=== PATIENT | male | born 1980 | race Caucasian/White ===

== ENCOUNTER 2016-10-11 18:36 | Emergency (ER) | payer BC ==
[~2016-10-11] VITALS: Ht 180.3 cm; Wt 104.3 kg
[2016-10-11 18:37] VITALS: BP 128/70
[2016-10-11] MEDS ORDERED: BAYE1TAB5 PO (18:48)
[2016-10-11] MEDS ORDERED: KETOROLAC 60 MG/2 ML VIAL (J1885) IM ONE (19:30)
[2016-10-11] MEDS ORDERED: CYCL10TA PO (19:54)
[2016-10-11] MEDS ORDERED: NAPR500T PO (19:54)
[2016-10-11] MEDS ORDERED: HYDR-3713 PO (19:54)
--- NOTE | 2016-10-12 08:39 | REP ---
Lumbar spine five views: Comparisons 11/15/2009. Vertebral body heights, interspacing alignment are normal and unchanged. There is a large Schmorl's node in the inferior endplate of L1, unchanged. There is no spondylolysis or spondylolisthesis. The pedicles, facets and sacroiliac articulations are unremarkable. There are numerous surgical clips in the abdomen on the right, unchanged. Impression: Essentially negative lumbar spine. No interval change. A large Schmorl's node is incidentally noted in the inferior endplate of L1, unchanged. Signed by Rigoberto Wei MD 10/12/2016 08:31 A
== END 2016-10-11 20:00 | disposition home or self-care (01) ==
LOC: M ED 19:21
DX: M54.5 Low back pain (principal); G89.29 Other chronic pain; M51.46 Schmorl's nodes, lumbar region; F17.210 Nicotine dependence, cigarettes, uncomplicated
CPT/HCPCS: 72110; 96372; 99281; J1885; J3360

== ENCOUNTER → 2018-10-15 | Outpatient (CLI) | payer BC ==
[~2018-10-15] MED LIST: BAYE1TAB5 PO; CYCL10TA PO; HYDR-3713 PO; NAPR-837 PO
[2018-10-15 09:39] LABS: HEMATOCRIT 44.4 % (42.0-52.0); HEMOGLOBIN 14.4 g/dl (13.5-17.5); MEAN CORPUSCULAR HEMOGLOBIN 31.9 pg (27.0-33.0); MEAN CORPUSCULAR HGB CONC 32.4 g/dl (32.0-36.5); MEAN CORPUSCULAR VOLUME 98.4 fl (80.0-96.0); PLATELET COUNT, AUTOMATED 201 10^3/uL (150-450); RED BLOOD COUNT 4.51 10^6/uL (4.30-6.10); WHITE BLOOD COUNT 8.8 10^3/uL (4.0-10.0)
[2018-10-15 09:56] LABS: HEMOGLOBIN A1c 5.9 %
--- NOTE | 2018-10-15 09:56 | REP ---
Right shoulder: Three views. History: Hypertension, fatigue, right shoulder pain. Findings: The right glenohumeral and acromioclavicular joints are normally aligned. Periarticular soft tissues are unremarkable. No erosive changes seen. Impression: Negative right shoulder radiographs. Electronically Signed by Luis Gant MD 10/15/2018 09:47 A
--- NOTE | 2018-10-15 09:56 | REP ---
Chest x-ray: Two views. History: Hypertension, fatigue, pain in the right shoulder. . Comparison study: March 02, 2009 . Findings: The lungs are well inflated and free of infiltrate. The pleural angles are sharp. The heart size is normal. Pulmonary vasculature is not increased. No significant bony abnormality is seen. There are surgical clips in the upper abdomen. Impression: Negative chest x-ray. Electronically Signed by Luis Gant MD 10/15/2018 09:48 A
[2018-10-15 10:13] LABS: ALBUMIN 3.9 GM/DL (3.2-5.2); ALT/SGPT 45 U/L (12-78); BILIRUBIN,TOTAL 0.4 MG/DL (0.2-1.0); BLOOD UREA NITROGEN 13 MG/DL (7-18); CALCIUM LEVEL 8.4 MG/DL (8.5-10.1); CARBON DIOXIDE LEVEL 29 MEQ/L (21-32); CHLORIDE LEVEL 110 MEQ/L (98-107); CHOLESTEROL LEVEL 202 MG/DL (<200); CREATININE FOR GFR 0.97 MG/DL (0.70-1.30); GLOMERULAR FILTRATION RATE > 60.0 (>60); GLUCOSE, FASTING 94 MG/DL (70-100); HDL CHOLESTEROL 40 MG/DL (>40); LDL CHOLESTEROL 134.2 MG/DL (<100); NON-HDL-C 162 MG/DL; POTASSIUM SERUM 4.2 MEQ/L (3.5-5.1); SODIUM LEVEL 144 MEQ/L (136-145); TESTOSTERONE 185 NG/DL (241-827); TOTAL PROTEIN 7.2 GM/DL (6.4-8.2); TRIGLYCERIDES LEVEL 139 MG/DL (<150)
--- NOTE | 2018-10-16 12:12 | ECGEPIP ---
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
== END ==
LOC: M LAB 08:49
PROVIDERS: ATTEND Family Medicine
DX: I10 Essential (primary) hypertension (principal); R53.83 Other fatigue; E07.9 Disorder of thyroid, unspecified

== ENCOUNTER → 2018-10-22 | Outpatient (CLI) | payer BC ==
[~2018-10-22] MED LIST changes: +GASTROGRAFIN SOLUTION 30ML (Q9963) As Ordered ONE; +ISOVUE-370 76% 100ML VIAL (Q9967) As Ordered ONE
--- NOTE | 2018-10-22 15:21 | REP ---
HISTORY: Abdominal pain and left lower quadrant mass. COMPARISON: None. CONTRAST: 100 mL [id number] The lung bases are clear. The precontrast enhanced portion of the examination shows hepatic and splenic densities to be within normal limits. There are no choleliths or nephroliths. Contrast enhanced portion of the examination shows the liver, gallbladder, spleen, pancreas, adrenal glands and kidneys to be within normal limits. The abdominal aorta and periaortic regions are within normal limits. No free fluid or free air is seen in the abdomen. The bowel loops and the mesenteries are within normal limits. Multiple surgical clips are seen in the abdomen and retroperitoneum. These are particularly right-sided and extend into the pelvis. The exact etiology of these clips is uncertain. CT PELVIS: There is descending colon and sigmoid colon diverticulosis. There is no free fluid or free air. There is no pelvic mass or adenopathy. The bowel loops are otherwise unremarkable. There is no CT evidence of an inguinal hernia. In the anterior abdominal wall at the level of the umbilicus there is a small rent, the aperture of which measures approximately 1.2 cm and through which only mesentery protrudes. Bone window technique throughout the exam shows the osseous structures to be within normal limits. IMPRESSION: 1. There is a small umbilical hernia as described above. 2. There is no evidence of acute intra-abdominal or intrapelvic disease with findings as described above. Electronically Signed by Leon Colon DO 10/22/2018 04:39 P
== END ==
LOC: M RAD 07:58
PROVIDERS: ATTEND Family Medicine
DX: K44.9 Diaphragmatic hernia without obstruction or gangrene (principal)
CPT/HCPCS: 74178; Q9963; Q9967

== ENCOUNTER 2018-12-10 06:08 | Day surgery (SDC) | payer BC ==
[~2018-12-10] VITALS: Ht 180.3 cm; Wt 106.1 kg
[~2018-12-10 06:08] MED LIST changes: -GASTROGRAFIN SOLUTION 30ML (Q9963) As Ordered ONE; -ISOVUE-370 76% 100ML VIAL (Q9967) As Ordered ONE; +LIDOCAINE 1% MDV 20ML VIAL SQ PRN; +PROAAER10; +TEST200I14 IM
[2018-12-10] MEDS ORDERED: LR 1,000 ML IV ONE (06:15)
[2018-12-10] MEDS ORDERED: fentaNYL 250 MCG/5 ML INJECTION (J3010) As Ordered ONE (06:50)
[2018-12-10] MEDS ORDERED: MIDAZOLAM INJ 2 MG/2 ML VIAL (J2250) As Ordered ONE (06:50)
[2018-12-10] MEDS ORDERED: PROPOFOL 200 MG/20 ML VIAL As Ordered ONE (06:58)
[2018-12-10] MEDS ORDERED: SUGAMMADEX SODIUM 500 MG/5 ML VIAL (BRIDION) As Ordered ONE (06:58)
[2018-12-10] MEDS ORDERED: LIDOCAINE 2% INJ 100 MG/5 ML SDV (FOR ANES.) As Ordered ONE (06:58)
[2018-12-10] MEDS ORDERED: ONDANSETRON 4MG/2ML VIAL (J2405) As Ordered ONE ×2 (06:58→09:00)
[2018-12-10] MEDS ORDERED: dexameTHASONE 4 MG/ML 1ML VIAL (J1100) As Ordered ONE (06:59)
[2018-12-10] MEDS ORDERED: KETOROLAC 60 MG/2 ML VIAL (J1885) As Ordered ONE (06:59)
[2018-12-10] MEDS ORDERED: ROCURONIUM BROMIDE 50 MG/5 ML VIAL As Ordered ONE (06:59)
[2018-12-10] MEDS ORDERED: BUPIVACAINE/EPIN 0.25% 30 ML VIAL As Ordered ONE (07:14)
[2018-12-10] MEDS ORDERED: KETAMINE HCL 200 MG/20 ML VIAL As Ordered ONE (07:32)
[2018-12-10] MEDS ORDERED: SUCCINYLCHOLINE 100 MG/5 ML SYRINGE (J0330) As Ordered ONE (07:53)
[2018-12-10] MEDS ORDERED: ACETAMINOPHEN 1000MG 100ML IV BTL (OFIRMEV) (J0131 PER 10MG) As Ordered ONE (07:54)
[2018-12-10] MEDS ORDERED: fentaNYL 100 MCG/2 ML INJECTION (J3010) As Ordered ONE (09:00)
[2018-12-10] MEDS ORDERED: NORCO, ANEXSIA 5/325MG TABLET (HYDROcodone/ACETAMINOPHEN) As Ordered ONE ×2 (09:00→11:42)
[2018-12-10] MEDS: fentaNYL 100 MCG/2 ML INJECTION (J3010) IV PRN ×4 (09:05→09:35)
[2018-12-10] MEDS ORDERED: LR 1,000 ML IV SCH (09:15)
[2018-12-10] MEDS ORDERED: ONDANSETRON 4MG/2ML VIAL (J2405) IV PRN (09:15)
[2018-12-10] MEDS: NORCO, ANEXSIA 5/325MG TABLET (HYDROcodone/ACETAMINOPHEN) PO PRN ×3 (09:15→11:45)
[2018-12-10] MEDS ORDERED: NORCO, ANEXSIA 5/325MG TABLET (HYDROcodone/ACETAMINOPHEN) PO PRN (09:15)
[2018-12-10 12:00] VITALS: BP 120/71
--- NOTE | 2018-12-13 08:44 | RO ---
DATE OF PROCEDURE: 12/10/2018 PREPROCEDURE DIAGNOSIS: Incarcerated incisional hernia. POSTPROCEDURE DIAGNOSIS: Incarcerated incisional hernia. PROCEDURE: Laparoscopic repair of incarcerated incisional hernia. SURGEON: Dr. Rigoberto Vogel FINISHER PLATE: None. ANESTHESIA: General. ESTIMATED BLOOD LOSS: 5 mL. COMPLICATIONS: None. 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 He is now having some pain from that and he is here to have it repaired. Recommendation was to proceed with laparoscopic possible open repair. Risks and benefits of the procedure not limited to but including bleeding, infection, hernia formation, hernia recurrence, damage to surrounding structures, need for further surgery were discussed in detail with the patient. Informed consent was obtained and procedure was planned. PROCEDURE: The patient brought back to operating room six. After sufficient sedation, the abdomen was sterilely prepped and draped. Next time-out was done to confirm proper patient and proper procedure. Following that, a 5 mm incision made in the left upper quadrant, Veress needle was inserted and the abdomen was insufflated to 15 mmHg. Once the abdomen was insufflated, the Veress needle was removed. The 5 mm OptiView port was used to gain access to the abdomen. Once the abdomen was entered, a 5 mm port was placed in the left lower quadrant using the Enseal. The omental adhesions along the midline of the abdomen were carefully taken down as well as reducing the omentum that was incarcerated up inside of the hernia sac. Once that was completed, the hernia sac was dissected free circumferentially along with the preperitoneal fat using the Enseal. Once that was completed and everything was reduced, a 9 cm round Parietex composite mesh #0 Vicryl sutures placed in all four corners. It was placed inside the abdomen. Transvaginal sutures were brought out through the abdominal wall through a stab incision using a Bishop-Dubon needle. Those sutures were then tied in place. A secure strap tacker was then used to place two rows of tacks around perimeter of the mesh. Once that was completed, the abdomen was desufflated, ports removed. Skin incision closed with #4-0 Vicryl subcuticular sutures. The abdomen was cleaned and dried. Steri-Strips, 4x4 and tape were applied thus ending procedure.
== END 2018-12-10 12:10 | disposition home or self-care (01) ==
LOC: M SDC 06:08
PROVIDERS: ATTEND Surgery
DX: K42.0 Umbilical hernia with obstruction, without gangrene (principal); J45.909 Unspecified asthma, uncomplicated; G47.30 Sleep apnea, unspecified; Z91.010 Allergy to peanuts; Z79.51 Long term (current) use of inhaled steroids
CPT/HCPCS: 49653; C1781; J0131; J0330; J0690; J1100; J1885; J2250; J2405; J3010

== ENCOUNTER → 2020-01-14 | Outpatient (CLI) | payer BC ==
[~2020-01-14] MED LIST changes: +CYCL-707 PO; -CYCL10TA PO; -LIDOCAINE 1% MDV 20ML VIAL SQ PRN
== END ==
LOC: CANPRECLI → M LAB 08:50
PROVIDERS: ATTEND Family Medicine
DX: R53.83 Other fatigue (principal)

== ENCOUNTER → 2020-01-16 | Outpatient (REF) | payer BC ==
[2020-02-11 06:33] LABS: HEMATOCRIT 47.6 % (42.0-52.0); HEMOGLOBIN 15.8 g/dl (13.5-17.5); MEAN CORPUSCULAR HEMOGLOBIN 33.4 pg (27.0-33.0); MEAN CORPUSCULAR HGB CONC 33.2 g/dl (32.0-36.5); MEAN CORPUSCULAR VOLUME 100.6 fl (80.0-96.0); PLATELET COUNT, AUTOMATED 202 10^3/uL (150-450); RED BLOOD COUNT 4.73 10^6/uL (4.30-6.10)
[2020-02-17 08:34] LABS: BLOOD UREA NITROGEN 20 MG/DL (7-18); CREATININE FOR GFR 1.32 MG/DL (0.70-1.30); GLOMERULAR FILTRATION RATE > 60.0 (>60); GLUCOSE, FASTING 109 MG/DL (70-100)
[2020-02-17 08:35] LABS: ALT/SGPT 55 IU/L (0-32); BILIRUBIN,TOTAL 0.3 MG/DL (0.2-1.0); CALCIUM LEVEL 9.7 MG/DL (8.5-10.1); CARBON DIOXIDE LEVEL 28 mmol/L (20-29); CHLORIDE LEVEL 108 MEQ/L (98-107); POTASSIUM SERUM 4.2 MEQ/L (3.5-5.1); SODIUM LEVEL 142 MEQ/L (136-145)
[2020-02-17 08:36] LABS: CHOLESTEROL LEVEL 241 MG/DL (<200); CHOLESTEROL RISK RATIO 8.607 (<5); HDL CHOLESTEROL 28 MG/DL (>40); NON-HDL-C 213 MG/DL; TOTAL PROTEIN 7.4 GM/DL (6.4-8.2); TRIGLYCERIDES LEVEL 553 MG/DL (<150)
[2020-02-17 08:56] LABS: HEMOGLOBIN A1c 5.4 %
== END ==
LOC: M LAB 09:27
PROVIDERS: ATTEND Family Medicine
DX: E03.9 Hypothyroidism, unspecified (principal); R53.83 Other fatigue
CPT/HCPCS: 36415; 80053; 80061; 83036; 84443; 85027; G0103

== ENCOUNTER → 2020-09-15 | Outpatient (CLI) | payer BC ==
[2020-09-15 09:23] LABS: HEMATOCRIT 46.1 % (42.0-52.0); HEMOGLOBIN 15.4 g/dl (13.5-17.5); MEAN CORPUSCULAR HEMOGLOBIN 33.5 pg (27.0-33.0); MEAN CORPUSCULAR HGB CONC 33.4 g/dl (32.0-36.5); MEAN CORPUSCULAR VOLUME 100.2 fl (80.0-96.0); PLATELET COUNT, AUTOMATED 198 10^3/uL (150-450); WHITE BLOOD COUNT 8.2 10^3/uL (4.0-10.0)
[2020-09-15 09:46] LABS: HEMOGLOBIN A1c 5.3 %
[2020-09-15 09:51] LABS: ALT/SGPT 52 U/L (12-78); BILIRUBIN,TOTAL 0.5 MG/DL (0.2-1.0); BLOOD UREA NITROGEN 11 MG/DL (7-18); CALCIUM LEVEL 9.1 MG/DL (8.5-10.1); CARBON DIOXIDE LEVEL 28 MEQ/L (21-32); CHLORIDE LEVEL 108 MEQ/L (98-107); CHOLESTEROL LEVEL 237 MG/DL (<200); CHOLESTEROL RISK RATIO 6.236 (<5); GLOMERULAR FILTRATION RATE > 60.0 (>60); GLUCOSE, FASTING 86 MG/DL (70-100); HDL CHOLESTEROL 38 MG/DL (>40); LDL CHOLESTEROL 156 MG/DL (<100); NON-HDL-C 199 MG/DL; POTASSIUM SERUM 4.5 MEQ/L (3.5-5.1); SODIUM LEVEL 142 MEQ/L (136-145); TOTAL PROTEIN 7.2 GM/DL (6.4-8.2); TRIGLYCERIDES LEVEL 216 MG/DL (<150)
--- NOTE | 2020-09-15 11:16 | REP ---
INDICATION: HTN,FATIGUE, LAB 1ST EKG 2ND XR 3RD. COMPARISON: Comparison chest x-ray October 15, 2018. TECHNIQUE: Two views.. FINDINGS: The lungs are well inflated and free of infiltrate. The pleural angles are sharp. The heart size is normal. Pulmonary vasculature is not increased. No significant bony abnormality is seen. IMPRESSION: Negative chest x-ray. <Electronically signed by Ej Gant > 09/15/20 1115
--- NOTE | 2020-09-15 17:45 | ECGEPIP ---
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
[2020-09-17 11:48] LABS: TESTOSTERONE 334 NG/DL (241-827)
== END ==
LOC: M LAB 08:17
PROVIDERS: ATTEND Family Medicine
DX: R53.83 Other fatigue (principal); I10 Essential (primary) hypertension; E03.9 Hypothyroidism, unspecified

== ENCOUNTER → 2021-05-02 | Outpatient (CLI) | payer BC ==
[2021-05-02 08:35] LABS: HEMATOCRIT 42.6 % (42.0-52.0); HEMOGLOBIN 14.5 g/dl (13.5-17.5); MEAN CORPUSCULAR HEMOGLOBIN 32.9 pg (27.0-33.0); MEAN CORPUSCULAR VOLUME 96.6 fl (80.0-96.0); PLATELET COUNT, AUTOMATED 202 10^3/uL (150-450); RED BLOOD COUNT 4.41 10^6/uL (4.30-6.10); WHITE BLOOD COUNT 9.2 10^3/uL (4.0-10.0)
--- NOTE | 2021-05-02 08:41 | REP ---
INDICATION: ANEMIA. COMPARISON: 09/15/2020 TECHNIQUE: PA and lateral FINDINGS: The superior mediastinal structures are midline. The cardiac silhouette is unremarkable in size, shape, and position. The diaphragmatic surfaces of the lungs are regular, and the costophrenic angles are clear. The pulmonary bernard are clear. The imaged osseous structures are intact. IMPRESSION: There is no acute cardiopulmonary disease. <Electronically signed by Leon Colon > 05/02/21 0837
[2021-05-02 09:10] LABS: ALT/SGPT 38 U/L (12-78); BILIRUBIN,TOTAL 0.4 MG/DL (0.2-1.0); BLOOD UREA NITROGEN 13 MG/DL (7-18); CARBON DIOXIDE LEVEL 27 MEQ/L (21-32); CHLORIDE LEVEL 105 MEQ/L (98-107); CHOLESTEROL LEVEL 177 MG/DL (<200); CHOLESTEROL RISK RATIO 5.057 (<5); CREATININE FOR GFR 1.09 MG/DL (0.70-1.30); GLOMERULAR FILTRATION RATE > 60.0 (>60); GLUCOSE, FASTING 96 MG/DL (70-100); HDL CHOLESTEROL 35 MG/DL (>40); LDL CHOLESTEROL 106 MG/DL (<100); NON-HDL-C 142 MG/DL; POTASSIUM SERUM 3.7 MEQ/L (3.5-5.1); SODIUM LEVEL 138 MEQ/L (136-145); TOTAL PROTEIN 7.3 GM/DL (6.4-8.2); TRIGLYCERIDES LEVEL 178 MG/DL (<150)
[2021-05-02 09:44] LABS: HEMOGLOBIN A1c 5.5 %
[2021-05-02 12:59] LABS: TOTAL 25(OH) VITAMIN D 18.1 NG/ML (30.0-100.0)
[2021-05-02 13:35] LABS: MONO SCRN NEGATIVE (NEGATIVE)
== END ==
LOC: M RAD 08:07
PROVIDERS: ATTEND Family Medicine
DX: D64.9 Anemia, unspecified (principal)

== ENCOUNTER → 2022-03-10 | Outpatient (CLI) | payer BC ==
[2022-03-10 08:17] LABS: HEMATOCRIT 42.8 % (42.0-52.0); HEMOGLOBIN 14.4 g/dl (13.5-17.5); MEAN CORPUSCULAR HEMOGLOBIN 33.2 pg (27.0-33.0); MEAN CORPUSCULAR HGB CONC 33.6 g/dl (32.0-36.5); MEAN CORPUSCULAR VOLUME 98.6 fl (80.0-96.0); PLATELET COUNT, AUTOMATED 198 10^3/uL (150-450); RED BLOOD COUNT 4.34 10^6/uL (4.30-6.10); WHITE BLOOD COUNT 9.3 10^3/uL (4.0-10.0)
[2022-03-10 09:23] LABS: ALBUMIN 4.1 GM/DL (3.2-5.2); ALT/SGPT 34 U/L (12-78); BILIRUBIN,TOTAL 0.8 MG/DL (0.2-1.0); BLOOD UREA NITROGEN 18 MG/DL (7-18); CALCIUM LEVEL 9.2 MG/DL (8.5-10.1); CARBON DIOXIDE LEVEL 28 MEQ/L (21-32); CHLORIDE LEVEL 106 MEQ/L (98-107); CHOLESTEROL LEVEL 175 MG/DL (<200); CHOLESTEROL RISK RATIO 3.645 (<5); CREATININE FOR GFR 1.03 MG/DL (0.70-1.30); GLOMERULAR FILTRATION RATE > 60.0 (>60); GLUCOSE, FASTING 98 MG/DL (70-100); HDL CHOLESTEROL 48 MG/DL (>40); LDL CHOLESTEROL 101 MG/DL (<100); NON-HDL-C 127 MG/DL; POTASSIUM SERUM 3.8 MEQ/L (3.5-5.1); RHEUMATOID FACTOR QUANT < 10.0 IU/ML (<15.0); SODIUM LEVEL 140 MEQ/L (136-145); THYROID STIMULATING HORMONE 0.874 uIU/ML (0.358-3.740); TRIGLYCERIDES LEVEL 131 MG/DL (<150)
== END ==
LOC: M RAD 06:50
PROVIDERS: ATTEND Family Medicine
DX: I10 Essential (primary) hypertension (principal)

== ENCOUNTER → 2022-09-24 | Outpatient (CLI) | payer BC | LOC: M SOG 07:52 | PROVIDERS: ATTEND Orthopaedic Surgery | DX: M25.562 Pain in left knee (principal) ==

== ENCOUNTER 2023-07-31 01:54 | Emergency (ER) | payer BC ==
[~2023-07-31] VITALS: Ht 180.3 cm; Wt 100.3 kg
[~2023-07-31 01:54] MED LIST changes: -METH-1164 PO; -TIZA4CAP
[2023-07-31] MEDS ORDERED: TIZA4CAP (02:03)
[2023-07-31] MEDS: diazePAM 5MG TABLET PO ONE (06:30)
[2023-07-31] MEDS: KETOROLAC 60MG 2ML VIAL IM ONE (06:31)
[2023-07-31] MEDS ORDERED: METH-1164 PO (07:46)
[2023-07-31] MEDS ORDERED: NAPR-837 PO (07:46)
[2023-07-31 08:03] VITALS: BP 149/99; TEMP 97.1; O2SAT 95
== END 2023-07-31 08:12 | disposition home or self-care (01) ==
LOC: M ED 01:54
DX: M54.12 Radiculopathy, cervical region (principal); M62.838 Other muscle spasm; J45.909 Unspecified asthma, uncomplicated; Z86.16 Personal history of COVID-19; Z87.891 Personal history of nicotine dependence; Z91.010 Allergy to peanuts
CPT/HCPCS: 72052; 73030; 96372; 99283; J1885

== ENCOUNTER → 2023-07-31 | Outpatient (CLI) | payer BC ==
[~2023-07-31] MED LIST changes: +METH-1164 PO; +TIZA4CAP
[2023-07-31 09:44] LABS: HEMATOCRIT 39.8 % (42.0-52.0); HEMOGLOBIN 13.1 g/dl (13.5-17.5); MEAN CORPUSCULAR HEMOGLOBIN 32.6 pg (27.0-33.0); MEAN CORPUSCULAR HGB CONC 32.9 g/dl (32.0-36.5); PLATELET COUNT, AUTOMATED 196 10^3/uL (150-450); RED BLOOD COUNT 4.02 10^6/uL (4.30-6.10); WHITE BLOOD COUNT 9.7 10^3/uL (4.0-10.0)
[2023-07-31 09:56] LABS: HEMOGLOBIN A1c 5.3 % (4.0-6.0)
[2023-07-31 10:20] LABS: ALBUMIN 3.6 G/DL (3.2-5.2); ALKALINE PHOSPHATASE 57 U/L (46-116); ALT/SGPT 22 U/L (7.0-40); AST/SGOT 12 U/L (<34); BILIRUBIN,TOTAL 0.7 MG/DL (0.3-1.2); BLOOD UREA NITROGEN 14 MG/DL (9-23); CALCIUM LEVEL 8.4 MG/DL (8.5-10.1); CARBON DIOXIDE LEVEL 30 MMOL/L (20-31); CHLORIDE LEVEL 106 MMOL/L (98-107); CHOLESTEROL LEVEL 168 MG/DL (<200); CHOLESTEROL RISK RATIO 4.49 (<5); CREATININE FOR GFR 0.89 MG/DL (0.70-1.30); GLOMERULAR FILTRATION RATE > 60.0 (>60); GLUCOSE, FASTING 85 MG/DL (60-100); HDL CHOLESTEROL 37.4 MG/DL (>40); LDL CHOLESTEROL 103.8 MG/DL (<100); NON-HDL-C 130.6 MG/DL; POTASSIUM SERUM 3.8 MMOL/L (3.5-5.1); SODIUM LEVEL 139 MMOL/L (136-145); TOTAL PROTEIN 6.3 G/DL (5.7-8.2); TRIGLYCERIDES LEVEL 134 MG/DL (<150)
[2023-07-31 10:22] LABS: TOTAL 25(OH) VITAMIN D 77.1 NG/ML (20.0-100.0)
[2023-07-31 10:23] LABS: TESTOSTERONE 372 NG/DL (241-827)
== END ==
LOC: M LAB 08:13
PROVIDERS: ATTEND Family Medicine
DX: E03.9 Hypothyroidism, unspecified (principal); E53.8 Deficiency of other specified B group vitamins; M54.2 Cervicalgia

== ENCOUNTER → 2024-05-03 | Outpatient (CLI) | payer BC ==
[~2024-05-03] MED LIST changes: +METH-1164 PO; +TIZA4CAP
[2024-05-03 07:29] LABS: HEMATOCRIT 41.2 % (42.0-52.0); HEMOGLOBIN 13.7 g/dl (13.5-17.5); MEAN CORPUSCULAR HEMOGLOBIN 32.9 pg (27.0-33.0); MEAN CORPUSCULAR HGB CONC 33.3 g/dl (32.0-36.5); PLATELET COUNT, AUTOMATED 185 10^3/uL (150-450); RED BLOOD COUNT 4.16 10^6/uL (4.30-6.10); WHITE BLOOD COUNT 6.3 10^3/uL (4.0-10.0)
[2024-05-03 07:54] LABS: HEMOGLOBIN A1c 5.2 % (4.0-6.0)
[2024-05-03 08:01] LABS: ALBUMIN 3.6 G/DL (3.2-5.2); ALKALINE PHOSPHATASE 65 U/L (40-129); ALT/SGPT 17 U/L (7.0-40); AST/SGOT 8 U/L (<34); BILIRUBIN,TOTAL 0.4 MG/DL (0.3-1.2); BLOOD UREA NITROGEN 13 MG/DL (9-23); CALCIUM LEVEL 9.1 MG/DL (8.5-10.1); CARBON DIOXIDE LEVEL 29 MMOL/L (20-31); CHLORIDE LEVEL 109 MMOL/L (98-107); CHOLESTEROL LEVEL 188 MG/DL (<200); CHOLESTEROL RISK RATIO 4.65 (<5); CREATININE FOR GFR 0.87 MG/DL (0.70-1.30); GLOMERULAR FILTRATION RATE > 60.0 (>60); GLUCOSE, FASTING 84 MG/DL (60-100); HDL CHOLESTEROL 40.4 MG/DL (>40); LDL CHOLESTEROL 118.8 MG/DL (<100); NON-HDL-C 147.6 MG/DL; SODIUM LEVEL 141 MMOL/L (136-145); TOTAL PROTEIN 6.8 G/DL (5.7-8.2); TRIGLYCERIDES LEVEL 144 MG/DL (<150)
[2024-05-03 08:02] LABS: THYROID STIMULATING HORMONE 1.089 uIU/ML (0.55-4.78)
[2024-05-03 08:03] LABS: TESTOSTERONE 295 NG/DL (241-827)
== END ==
LOC: M RAD 06:27
PROVIDERS: ATTEND Family Medicine
DX: J44.9 Chronic obstructive pulmonary disease, unspecified (principal)

== ENCOUNTER → 2024-10-25 | Outpatient (CLI) | payer BC ==
[2024-10-25 11:38] LABS: HEMATOCRIT 44.4 % (42.0-52.0); HEMOGLOBIN 14.5 g/dl (13.5-17.5); MEAN CORPUSCULAR HEMOGLOBIN 32.1 pg (27.0-33.0); MEAN CORPUSCULAR HGB CONC 32.7 g/dl (32.0-36.5); MEAN CORPUSCULAR VOLUME 98.2 fl (80.0-96.0); PLATELET COUNT, AUTOMATED 193 10^3/uL (150-450); RED BLOOD COUNT 4.52 10^6/uL (4.30-6.10); WHITE BLOOD COUNT 8.3 10^3/uL (4.0-10.0)
[2024-10-25 12:03] LABS: PROSTATIC SPECIFIC AG MONITOR 0.93 NG/ML (< 4.00)
[2024-10-25 12:06] LABS: ALBUMIN 3.7 G/DL (3.2-5.2); ALKALINE PHOSPHATASE 66 U/L (40-129); ALT/SGPT 26 U/L (7.0-40); AST/SGOT 14 U/L (<34); BILIRUBIN,TOTAL 0.7 MG/DL (0.3-1.2); BLOOD UREA NITROGEN 13 MG/DL (9-23); CALCIUM LEVEL 8.8 MG/DL (8.5-10.1); CARBON DIOXIDE LEVEL 29 MMOL/L (20-31); CHLORIDE LEVEL 105 MMOL/L (98-107); CHOLESTEROL LEVEL 228 MG/DL (<200); CHOLESTEROL RISK RATIO 4.22 (<5); CREATININE FOR GFR 0.95 MG/DL (0.70-1.30); GLOMERULAR FILTRATION RATE > 90.0 (>60); GLUCOSE, FASTING 96 MG/DL (60-100); LDL CHOLESTEROL 132.2 MG/DL (<100); POTASSIUM SERUM 4.3 MMOL/L (3.5-5.1); SODIUM LEVEL 143 MMOL/L (136-145); TOTAL PROTEIN 6.8 G/DL (5.7-8.2); TRIGLYCERIDES LEVEL 209 MG/DL (<150)
[2024-10-25 12:08] LABS: THYROID STIMULATING HORMONE 1.369 uIU/ML (0.55-4.78)
[2024-10-25 12:09] LABS: TESTOSTERONE 474 NG/DL (241-827)
[2024-10-25 12:12] LABS: HEMOGLOBIN A1c 5.4 % (4.0-6.0)
== END ==
LOC: M RAD 11:00 → M LAB 11:00
PROVIDERS: ATTEND Family Medicine
DX: I10 Essential (primary) hypertension (principal); R53.83 Other fatigue

== ENCOUNTER 2025-05-22 19:17 | Emergency (ER) | payer BC ==
[~2025-05-22] VITALS: Ht 180.3 cm; Wt 95.2 kg
[2025-05-22] MEDS: LIDOCAINE 5% PATCH TD ONE (23:43)
[2025-05-22] MEDS: KETOROLAC 60 MG/2 ML VIAL IM ONE (23:44)
[2025-05-22] MEDS: ACETAMINOPHEN 500 MG TAB PO ONE (23:44)
[2025-05-22] MEDS: TETANUS/DIPHTH/ACEL. PERTUSSIS 0.5 ML SYR IM.IMMUN ONE (23:44)
[2025-05-23] MEDS: NEOSPORIN TOP OINT 15 GM TOP STA (01:18)
[2025-05-23 01:29] VITALS: BP 122/76; TEMP 97.2; O2SAT 99
== END 2025-05-23 01:30 | disposition home or self-care (01) ==
LOC: M ED 19:17
DX: S80.212A Abrasion, left knee, initial encounter (principal); S70.02XA Contusion of left hip, initial encounter; S83.92XA Sprain of unspecified site of left knee, initial encounter; Y92.019 Unspecified place in single-family (private) house as the place of occurrence of the external cause; Y93.9 Activity, unspecified; Y99.9 Unspecified external cause status; W01.0XXA Fall on same level from slipping, tripping and stumbling without subsequent striking against object, initial encounter; J45.909 Unspecified asthma, uncomplicated; Z23 Encounter for immunization; Z91.010 Allergy to peanuts; Z79.899 Other long term (current) drug therapy
CPT/HCPCS: 72192; 73552; 73564; 90471; 90715; 96372; 99284; J1885